=== PATIENT | female | born 2000 | race Caucasian/White ===

== ENCOUNTER 2024-11-19 02:19 | Emergency (ER) | payer OTHER, SELFPAY ==
[2024-11-19 02:20] VITALS: BMI 28.3
[2024-11-19 02:21] VITALS: BP 120/81
--- NOTE | 2024-11-19 02:51 | ED.GENMED ---
History of Present Illness
General
Chief Complaint: Abdominal Symptoms
Source: patient
Exam Limitations: none
Time Seen by Provider: 11/19/24 02:36
Nursing documentation reviewed up to this point in time: agreed with
History of Present Illness
History of Present Illness:
This is a 24-year-old [employer] student who complains of 2-hour history of generalized crampy abdominal pain accompanied with nausea, vomiting, diarrhea. She denies hematemesis nor hematochezia. She admits to intermittent chills
but no dizziness or lightheadedness.
She was exposed to a friend last week who had milder GI symptoms primarily diarrhea.
No recent travel nor recent antibiotic use.
Her only daily medication is Zoloft.
Last menstrual period over 1 month ago, denies risk of .
Past History
Past History
ED Past Medical History: Psychiatric (Patient takes Prozac)
ED Past Surgical History: None
Social History
Tobacco: Non-smoker
Alcohol: Occasional
Personal: Single
Living: with roommate
Employment: Student
Family History
Family History: Other (Noncontributory)
Phy Exam
Physical Exam
Physical Exam:
GENERAL: 24-year-old female appears her stated age, bright and alert, pleasant, appears in no acute distress. Holding emesis basin at the ready.
EYE: anicteric
NECK: Supple, nontender, no meningismus, no significant adenopathy.
ENT: Facemask in place.
CARDIAC: Regular rate and rhythm. no murmur.
LUNGS: Clear breath sounds bilaterally, no acute respiratory distress, no wheezes/rales/rhonchi
ABDOMEN: Soft, nondistended, without focal tenderness, no r/g, no cvat. Mildly hyperactive bowel sounds.
NEUROLOGICAL: Alert and oriented x3, no focal neuro deficits. Gait is steady.
SKIN: Warm and dry, normal color, skin intact. No rash.
MUSCULOSKELETAL: No C/C/E. peripheral pulses are full and equal b/l. No palpable tenderness.
PSYCH: Normal and appropriate interaction.
Course
Orders/Labs/Results
Orders:
Orders
11/19/24 02:48
0.9% Sodium Chloride 1000 ml [Nss] 1,000 ml IV BOLUS
Ondansetron Injectable [Zofran] 4 mg IV NOW STA
Test Result ONCE
11/19/24 03:17
Complete Blood Count/With Diff Urgent
Comprehensive Metabolic Panel Urgent
HCG, Serum Qualitative Screen Urgent
11/19/24 05:14
Encourage PO Hydration-Treatme ONCE
11/19/24 05:36
Norovirus by PCR Urgent
GEORGE Source: Feces/Stool
Specimen Description:
Date Specimen was Collected: 11/19/24
Time Specimen was Collected: 05:38
Stool Culture Urgent
GEORGE Source: Feces/Stool
Specimen Description:
Date Specimen was Collected: 11/19/24
Time Specimen was Collected: 05:38
Acetaminophen [Tylenol Suspension] 650 mg PO NOW STA
11/19/24 05:48
Dicyclomine HCl [Bentyl] 20 mg IM NOW STA
Abnormal Lab Results
11/19/24
03:17
WBC 13.2 H 10^3/uL
(4.8-10.8)
Abs Immat Gran (auto) 0.1 H 10^3/uL
(0-0.05)
Absolute Neuts (auto) 11.5 H 10^3/uL
(1.4-6.5)
Absolute Lymphs (auto) 0.8 L 10^3/uL
(1.2-3.4)
Immature Gran % 0.7 H %
(0-0.5)
Neutrophils % 87.2 H %
(42.2-75.2)
Lymphocytes % 6.1 L %
(20.5-51.1)
Glucose 149 H mg/dl
(70-99)
11/19/24 03:17
11/19/24 03:17
Vital Signs
Temp: 98.7 F
Initial and Last Documented VS:
Initial Vital Signs
Pulse Resp BP Pulse Ox
124 20 120/81 100
11/19/24 02:21 11/19/24 02:21 11/19/24 02:21 11/19/24 02:21
Last Documented Vital Signs
Temp Pulse Resp BP Pulse Ox
99.3 F 124 20 113/69 100
11/19/24 05:39 11/19/24 02:21 11/19/24 02:21 11/19/24 04:00 11/19/24 02:21
MDM/Problems Addressed
Differential Diagnosis Includes:
Concern for acute gastroenteritis either viral versus foodborne.
Clinically well in appearance. No appreciable abdominal tenderness on exam.
Will check labs including hCG for completeness sake.
Will initiate IV fluids and given IV dose of Zofran.
At this point no indication for imaging but will reassess.
*Pulse Oximetry
Patient hypoxic: no
*Critical Care Note
Total Time (30-74mins, 75-104mins- exclusive of procedures): Not Applicable
Update Note
Update Note:
05:40
Patient feeling improved.
No further nausea nor vomiting.
Tolerating oral fluids.
She has passed 1 loose stool. Stool cultures and stool for norovirus have been sent.
She continues with intermittent crampy abdominal pain but abdomen remains soft without appreciable tenderness.
Borderline low-grade fever noted. Will give a dose of oral Tylenol and will give an IM dose of Bentyl.
I suspect viral gastroenteritis and recommend supportive measures, limiting diet to clear liquids today, slowly advance as tolerated.
A prescription for Zofran has been provided for as needed nausea.
Recommend [id number] Imodium for as needed diarrhea.
Prompt follow-up with PCP for recheck.
ED Attending Note
-
Portions of this chart may have been created with voice recognition software.� Occasional wrong word or��sound alike� substitutions may have occurred due to the inherent limitations of voice recognition software.
Discharge Plan
Departure
Patient Disposition: Home (Routine Discharge)
Date of Disposition: 11/19/24
Time of Disposition: 05:39
Patient with high blood pressure during this ER visit?: No
Condition: Good
Discharge Problem:
Acute gastroenteritis
Instructions: Viral gastroenteritis in adults, Clear Liquid Diet
Prescriptions:
New
ondansetron 4 mg tablet,disintegrating
4 mg PO QID PRN (Reason: nausea and vomiting) Qty: 20 0RF
No Action
fluoxetine 20 MG capsule
80 mg PO HS
ondansetron 4 MG tablet,disintegrating
4 mg PO TIDPRN PRN (Reason: Nausea) Qty: 15 0RF
oseltamivir 75 MG capsule
75 mg PO BID Qty: 10 0RF
ibuprofen 600 mg tablet
600 mg PO Q6H PRN (Reason: fever or pain) Qty: 14 0RF
fluticasone propionate [24 Hour Allergy Relief] 50 mcg/actuation spray,suspension
1 spray intranasal BID Qty: 16 0RF
Referrals:
[facility] [Provider Group] - As needed
UNKNOWN - PT DOES,NOT KNOW [Family Provider] -
Activity Restrictions/Additional Instructions:
Limit your diet to clear liquids today, starting tomorrow advance diet to soft/bland foods as tolerated.
You have been prescribed ondansetron to take 4 times daily as needed for nausea.
You can take [id number] Imodium, 1 to 2 tablets 4 times daily as needed for diarrhea.
Take Tylenol versus ibuprofen as needed for fever, aches.
Follow-up with primary care physician for recheck. You have been provided the name and number of our family practice residency clinic to follow-up with as needed.
Interventions
Interventions:
*Risk Screen - Suicide Last Done: 11/19/24 02:21
*General Assessment Last Done: 11/19/24 02:21
*Neglect/Abuse Screening Last Done: 11/19/24 02:21
EU-Oyajrr-Uowlqqznhd Assessment Last Done: 11/19/24 04:39
Discharge Date and Time
Print Language: CROATIAN
[2024-11-19 03:20] VITALS: BP 102/63
[2024-11-19] MEDS: ZOFRAN 4 MG IV (03:24)
[2024-11-19] MEDS: NSS 1000 IV (03:24)
[2024-11-19 03:27] LABS: % Basophils 0.4 % (0-2); % Eosinophils 1.4 % (0-6); % Immature Granulocytes 0.7 % (0-0.5); % Lymphocytes 6.1 % (20.5-51.1); % Monocytes 4.2 % (1.7-9.3); % Neutrophils 87.2 % (42.2-75.2); Absolute Basophils 0.1 10^3/uL (0-0.2); Absolute Eosinophils 0.2 10^3/uL (0-0.7); Absolute Immature Granulocytes 0.1 10^3/uL (0-0.05); Absolute Lymphocytes 0.8 10^3/uL (1.2-3.4); Absolute Monocytes 0.6 10^3/uL (0.1-0.6); Absolute Neutrophils 11.5 10^3/uL (1.4-6.5); Hematocrit 42.3 % (37.0-47.0); Hemoglobin 14.2 g/dL (12.0-16.0); Mean Corp Hgb Conc. 33.6 g/dL (33.0-37.0); Mean Corpuscular Hgb 28.2 pg (27.0-31.0); Mean Corpuscular Volume 84.1 fL (81.0-99.0); Mean Platelet Volume 10.1 fL (7.4-10.4); Nucleated Red Blood Cells % 0 %; Platelet Count 258 10^3/uL (130-400); Red Blood Cell Count 5.03 10^6/uL (4.20-5.40); Red Cell Dist. Width 12.6 % (11.5-14.5); White Blood Cell Count 13.2 10^3/uL (4.8-10.8)
[2024-11-19 03:37] LABS: HCG, Serum Qualitative Screen Negative
[2024-11-19 03:41] LABS: ALT (SGPT) 32 U/L (0-35); AST (SGOT) 25 U/L (14-36); Albumin 4.2 g/dl (3.5-5.0); Alkaline Phosphatase 77 U/L (38-126); Blood Urea Nitrogen 16 mg/dl (7-17); Calcium 9.6 mg/dl (8.4-10.2); Carbon Dioxide 24 mmol/L (22-30); Chloride 104 mmol/L (98-107); Estimated Creatinine Clearance 118 ml/min; Glucose 149 mg/dl (70-99); Sodium 138 mmol/L (135-145); Total Bilirubin 0.9 mg/dl (0.2-1.3); Total Protein 7.2 g/dl (6.3-8.2); eGFR > 60.00
[2024-11-19 04:00] VITALS: BP 113/69
[2024-11-19] MEDS: TYLENOL SUSPENSION 650 MG PO (05:44)
[2024-11-19] MEDS: BENTYL 20 MG IM (06:08)
[2024-11-19 06:43] VITALS: BP 114/66
[2024-11-19] MEDS: LOMOTIL 1 TABLET PO (06:53)
== END 2024-11-19 07:35 | disposition home or self-care (01) ==
LOC: EMR 02:19
PROVIDERS: EMERGENCY PHYSICIAN Emergency Medicine
DX: K52.9 Noninfective gastroenteritis and colitis, unspecified (principal)
CPT/HCPCS: 96374; 96372; 96361; 99284; 80053; 84703; 85025; 87045; 87046; 87427; 87798

== ENCOUNTER 2025-01-02 13:01 | Emergency (ER) | payer OTHER, SELFPAY ==
[2025-01-02 13:05] VITALS: BP 134/86
[2025-01-02 13:39] VITALS: BMI 31.9
--- NOTE | 2025-01-02 14:31 | ED.GENMED ---
History of Present Illness
General
Chief Complaint: Allergic Reaction
Source: patient
Exam Limitations: none
Time Seen by Provider: 01/02/25 14:14
Nursing documentation reviewed up to this point in time: agreed with
History of Present Illness
History of Present Illness:
24-year-old female with history as noted presents to the ER for evaluation of allergy symptoms. Patient says that she was dog sitting for the past 48 hours; she says she has some mild allergy to pet dander/dogs. She also reports that she has
issues with pollen and recently pollen in the air has been high. She says that she started having sneezing, congestion but symptoms ultimately progressed to wheezing, coughing, tightness in the chest which is more severe than usual which prompted
her to come to the ER for assessment. She denies any fever, chills. Denies any nausea, vomiting, diarrhea, cramping. Denies any rash. Denies other complaints. She does have a history of childhood asthma she says.
Past History
Past History
ED Past Medical History: Psychiatric (Patient takes Prozac)
ED Past Surgical History: None
Social History
Tobacco: Non-smoker
Alcohol: Occasional
Personal: Single
Living: with roommate
Employment: Student
Family History
Family History: Other (Noncontributory)
Review of Systems
Review of Systems
All Other Systems: ROS reviewed and negative except as documented in HPI and ROS
Constitutional: Denies fever
EENT: Reports other (Sneezing, congestion)
Respiratory: Reports cough and trouble breathing
ABD/GI: Denies abdominal pain, vomiting or diarrhea
Skin: Denies rash
Neurological: Denies dizzy
Phy Exam
Physical Exam
Physical Exam:
General: Awake, alert, oriented x3; no acute distress
Head: Normocephalic, atraumatic
Eyes: Conjunctiva normal
Throat: Airway intact, handling secretions, midline uvula without edema
Neck: Trachea midline, supple without meningismus
Lungs: Occasional faint expiratory wheeze, normal pulse ox, normal respiratory rate
Heart: Regular rate and rhythm, no murmurs, gallops, or rubs
Neuro: No gross deficits
Skin: no rash/hives
Extremities: Warm well-perfused
Scores
Heart Failure Risk
Heart Failure Risk Score: Not Applicable
Heart Score for Chest Pain Patients
STEMI patient?: Not applicable
Withdrawal Assessment of Alcohol
Withdrawal Assessment Completed?: Not applicable
Course
Orders/Labs/Results
Orders:
Orders
01/02/25 13:10
Electrocardiogram (*1) Urgent
Reason for Study: Shortness of Breath
EKG- Treatment ONCE
01/02/25 14:29
Ipratropium/Albuterol Sulfate [Duoneb] 3 ml INH R NOW STA
Loratadine [Claritin] 10 mg PO NOW STA
Prednisone [Deltasone] 50 mg PO NOW STA
Vital Signs
Initial and Last Documented VS:
Initial Vital Signs
Temp Pulse Resp BP Pulse Ox
37.2 C 102 16 134/86 96
01/02/25 13:05 01/02/25 13:05 01/02/25 13:05 01/02/25 13:05 01/02/25 13:05
Last Documented Vital Signs
Temp Pulse Resp BP Pulse Ox
37.2 C 102 16 134/86 96
01/02/25 13:05 01/02/25 13:05 01/02/25 13:05 01/02/25 13:05 01/02/25 13:41
MDM/Problems Addressed
Differential Diagnosis Includes:
Allergic rhinitis, asthma exacerbation, allergic bronchitis
MDM/Problems Addressed:
24-year-old female presents for evaluation of sneezing, coughing, wheezing/chest tightness, congestion in the setting of recent exposure to known allergens. Symptoms more pronounced than typical which prompted ER visit. Vitals and exam as above.
Suspect mild environmental allergic symptoms�rhinitis with likely some component of bronchitis. Treat with antihistamine, steroid, albuterol. No respiratory distress, no no signs or symptoms of anaphylaxis or other emergent pathology. Stable for
discharge and outpatient treatment. Spoke about return precautions all questions answered.
*Pulse Oximetry
Patient hypoxic: no
*EKG
Interpreted by ED Provider?: Yes
Heart Rate: 89
Rate: normal
Rhythm: sinus
[place]: normal axis
Interval: normal interval
QRS Pattern: normal QRS
Ischemia: no ischemia
*Critical Care Note
Total Time (30-74mins, 75-104mins- exclusive of procedures): Not Applicable
Data Reviewed
Source: patient and records
Further Testing Considered But Not Given:
Considered chest x-ray
ED Attending Note
-
Portions of this chart may have been created with voice recognition software.� Occasional wrong word or��sound alike� substitutions may have occurred due to the inherent limitations of voice recognition software.
Discharge Plan
Departure
Patient Disposition: Home (Routine Discharge)
Date of Disposition: 01/02/25
Time of Disposition: 14:36
Patient with high blood pressure during this ER visit?: No
Discharge Problem:
Environmental allergies
Instructions: Environmental allergies in adults
Prescriptions:
New
albuterol sulfate 90 mcg/actuation HFA aerosol inhaler
2 puff inhalation Q6H PRN (Reason: shortness of breath or wheezing) Qty: 6.7 0RF
loratadine 10 mg tablet
10 mg PO DAILY PRN (Reason: allergic symptoms) Qty: 30 0RF
prednisone 50 mg tablet
50 mg PO DAILY Qty: 5 0RF
No Action
fluoxetine 20 MG capsule
80 mg PO HS
ondansetron 4 MG tablet,disintegrating
4 mg PO TIDPRN PRN (Reason: Nausea) Qty: 15 0RF
oseltamivir 75 MG capsule
75 mg PO BID Qty: 10 0RF
ibuprofen 600 mg tablet
600 mg PO Q6H PRN (Reason: fever or pain) Qty: 14 0RF
fluticasone propionate [24 Hour Allergy Relief] 50 mcg/actuation spray,suspension
1 spray intranasal BID Qty: 16 0RF
ondansetron 4 mg tablet,disintegrating
4 mg PO QID PRN (Reason: nausea and vomiting) Qty: 20 0RF
Referrals:
UNKNOWN - PT DOES,NOT KNOW [Family Provider] -
Activity Restrictions/Additional Instructions:
Thank you for visiting the Emergency Department at [facility].
1. Please schedule a follow up appointment as directed. Call first thing tomorrow morning to make an appointment.
2. If indicated, please take your medications as instructed and indicated on discharge paperwork.
3. If any of your symptoms do not improve, or persist, or become more severe within 6-12 hours, please return to the emergency department for further care.
4. Please return to the emergency department if you develop a headache, neck pain/stiffness, fever greater than 100.4F, chest pain, shortness of breath, persistent nausea, vomiting, slurred speech, difficulty walking, numbness/tingling, weakness,
signs of infection or any other symptoms that are worrisome to you.
Please call [phone] if you have any questions.
Interventions
Interventions:
*Risk Screen - Suicide Last Done: 01/02/25 13:05
*General Assessment Last Done: 01/02/25 13:05
*Neglect/Abuse Screening Last Done: 01/02/25 13:05
*ED COVID-19 Vaccine History Last Done: 01/02/25 13:05
ED- Cardiac Assessment Last Done: 01/02/25 13:39
ED- Pulmonary Assessment Last Done: 01/02/25 13:41
ED-Skin Assessment Last Done: 01/02/25 13:39
Discharge Date and Time
Print Language: PERUVIAN
[2025-01-02] MEDS: CLARITIN 10 MG PO (14:59)
[2025-01-02] MEDS: DUONEB 3 ML INH (14:59)
[2025-01-02] MEDS: DELTASONE 50 MG PO (14:59)
== END 2025-01-02 15:39 | disposition home or self-care (01) ==
LOC: EMR 13:01
PROVIDERS: EMERGENCY PHYSICIAN Emergency Medicine
DX: J30.89 Other allergic rhinitis (principal)
CPT/HCPCS: 99283; 94640; 93005